=== PATIENT | female | born 1975 | race Caucasian/White ===

== ENCOUNTER 2019-09-24 08:36 | Emergency (ER) | payer MEDICAID, OTHER ==
[~2019-09-24] VITALS: Ht 170.2 cm; Wt 71.0 kg
[~2019-09-24 08:36] MED LIST: ALBU6.7H9 INH; AMOX-422 PO; ESCI20TA PO; FLUT1DIS INH; OXCA600T5 PO; PRED10TA23 PO; TRAZ-219 PO
[2019-09-24 08:45] VITALS: BP 180/108
[2019-09-24] MEDS ORDERED: HYDROcodone/acetaminophen 5mg/325mg tablet PO ONE (09:50)
[2019-09-24] MEDS ORDERED: ondansetron 4mg rapidly disintigrating tab PO ONE (09:50)
[2019-09-24] MEDS ORDERED: ALBU8HFA PO (09:52)
[2019-09-24] MEDS ORDERED: IBUP-1984 PO (09:52)
== END 2019-09-24 10:02 | disposition home or self-care (01) ==
LOC: ER 08:37
DX: S60.222A Contusion of left hand, initial encounter (principal); M25.532 Pain in left wrist; J45.909 Unspecified asthma, uncomplicated; Z79.899 Other long term (current) drug therapy; W22.8XXA Striking against or struck by other objects, initial encounter; Y93.89 Activity, other specified; Y92.89 Other specified places as the place of occurrence of the external cause; Y99.9 Unspecified external cause status
CPT/HCPCS: 29125; 73110; 99284

== ENCOUNTER 2019-11-29 16:30 | Emergency (ER) | payer MEDICAID, OTHER ==
[~2019-11-29] VITALS: Ht 170.2 cm; Wt 68.3 kg
[~2019-11-29 16:30] MED LIST changes: -TRAZ-219 PO; +TRAZ-256 PO
[2019-11-29] MEDS ORDERED: albuterol 2.5 MG/3 ML nebule NEB ONE (17:10)
[2019-11-29] MEDS ORDERED: predniSONE 20 mg tablet PO ONE (17:10)
[2019-11-29] MEDS ORDERED: albuterol 2.5 MG/3 ML nebule CONTNEB PRN (18:30)
--- NOTE | 2019-11-29 18:53 | NUR ---
Continuous neb tx started.
[2019-11-29] MEDS ORDERED: ALBU18HF2 INH (19:04)
[2019-11-29] MEDS ORDERED: PRED20TA PO (19:04)
[2019-11-29] MEDS ORDERED: ALB0.5UD IH (19:04)
[2019-11-29 20:08] VITALS: BP 154/101
== END 2019-11-29 20:12 | disposition home or self-care (01) ==
LOC: ER 16:30
DX: J45.901 Unspecified asthma with (acute) exacerbation (principal); Z79.899 Other long term (current) drug therapy
CPT/HCPCS: 94640; 94644; 99285; J7512; 94760

== ENCOUNTER 2020-05-25 21:13 | Emergency (ER) | payer OTHER, MEDICAID ==
[~2020-05-25] VITALS: Ht 170.2 cm; Wt 75.0 kg
[~2020-05-25 21:13] MED LIST changes: +ALBU18HF2 INH
[2020-05-25] MEDS ORDERED: normal saline 1000ML IV soln IV ONE (21:25)
[2020-05-25] MEDS ORDERED: methylPREDNISolone sod succ 125mg/2ml vial IV ONE (21:30)
[2020-05-25] MEDS ORDERED: albuterol 2.5 MG/3 ML nebule CONTNEB PRN (21:30)
[2020-05-25] MEDS ORDERED: LORazepam 2 mg/ml vial IV ONE (21:35)
[2020-05-25] MEDS ORDERED: magnesium 2GM in 50ml NS 50 ML IV ONE (21:35)
[2020-05-25 21:49] LABS: BASOPHILS % (AUTO) 0.6 % (0-1); EOSINOPHILS # (AUTO) 0.6 X10'3 (0-0.9); EOSINOPHILS % (AUTO) 8.4 % (0-6); HEMATOCRIT 41.6 % (35.0-45.0); LYMPHOCYTES # (AUTO) 1.5 X10'3 (1.1-4.8); LYMPHOCYTES % (AUTO) 21.2 % (21-51); MEAN CORPUSCULAR HEMOGLOBIN 33.4 PG (27.0-31.0); MEAN CORPUSCULAR HGB CONC 33.7 g/dL (33.0-36.5); MEAN CORPUSCULAR VOLUME 99.1 FL (78-98); MEAN PLATELET VOLUME 8.3 FL (7.4-10.4); MONOCYTES # (AUTO) 0.5 X10'3 (0-0.9); MONOCYTES % (AUTO) 7.8 % (2-12); NEUTROPHILS # (AUTO) 4.4 X10'3 (1.8-7.7); PLATELET COUNT 193 X10'3 (140-440); RED CELL DISTRIBUTION WIDTH 12.5 % (11.5-14.5); WHITE BLOOD COUNT 7.1 X10'3 (4.5-11.0)
[2020-05-25 22:08] LABS: ALANINE AMINOTRANSFERASE 26 U/L (12-78); ALBUMIN 4.1 G/DL (3.4-5.0); ALBUMIN/GLOBULIN RATIO 1.1 (1.1-1.5); ALKALINE PHOSPHATASE 92 IU/L (46-116); ANION GAP 11 (8-16); ASPARTATE AMINO TRANSFERASE 27 U/L (10-37); BILIRUBIN,TOTAL 0.4 MG/DL (0.1-1.0); BLOOD UREA NITROGEN 10 MG/DL (7-18); BUN/CREATININE RATIO 9.9 (6.6-38.0); CALCIUM 8.5 MG/DL (8.5-10.1); CHLORIDE 104 MMOL/L (99-107); CREATININE 1.01 MG/DL (0.40-0.90); GLUCOSE 90 MG/DL (70-104); POTASSIUM 3.7 MMOL/L (3.5-5.1); SODIUM 139 MMOL/L (135-145); TOTAL PROTEIN 7.7 G/DL (6.4-8.2); eGFR 59 ML/MIN
[2020-05-25] MEDS ORDERED: ipratropium/albuterol 3ml nebule NEB ONE (22:45)
[2020-05-25] MEDS ORDERED: albuterol 2.5 MG/3 ML nebule NEB ONE (23:25)
[2020-05-25] MEDS ORDERED: ALBU6.7H9 INH (23:28)
[2020-05-25] MEDS ORDERED: PRED20TA PO (23:28)
[2020-05-26] MEDS ORDERED: ondansetron/PF 4mg/2ml inj IV ONE (00:05)
--- NOTE | 2020-05-26 00:19 | NUR ---
pt with continued wheezing, but reports improvement from he initial symptoms when first arrived. Receiving adtl neb. just given zofran for nausea.
[2020-05-26 00:20] VITALS: BP 140/93
== END 2020-05-26 01:25 | disposition home or self-care (01) ==
LOC: ER 21:14
DX: J45.901 Unspecified asthma with (acute) exacerbation (principal); R06.02 Shortness of breath; Z98.890 Other specified postprocedural states; Z79.2 Long term (current) use of antibiotics; Z79.899 Other long term (current) drug therapy
CPT/HCPCS: 36415; 71045; 80053; 83605; 84145; 85025; 87040; 93005; 94640; 94644; 96365; 96366; 96375; 99285; J2060; J2405; J2930; J3475; J7030; 94760

== ENCOUNTER 2020-06-22 04:03 | Emergency (ER) | payer OTHER, MEDICAID ==
[~2020-06-22] VITALS: Ht 170.2 cm; Wt 79.5 kg
[2020-06-22] MEDS ORDERED: normal saline 1000ML IV soln IVB ONE (04:15)
[2020-06-22] MEDS ORDERED: albuterol 2.5 MG/3 ML nebule CONTNEB PRN (04:15)
[2020-06-22] MEDS ORDERED: methylPREDNISolone sod succ 125mg/2ml vial IV ONE (04:15)
[2020-06-22] MEDS ORDERED: ipratropium/albuterol 3ml nebule NEB ONE (04:15)
[2020-06-22] MEDS ORDERED: ALB0.5UD IH (05:16)
[2020-06-22] MEDS ORDERED: ALBU8.5H8 INH (05:16)
[2020-06-22] MEDS ORDERED: PRED20TA PO (05:16)
[2020-06-22 05:30] VITALS: BP 161/100
== END 2020-06-22 05:31 | disposition home or self-care (01) ==
LOC: ER 04:03
DX: J45.901 Unspecified asthma with (acute) exacerbation (principal); Z79.899 Other long term (current) drug therapy; Z98.890 Other specified postprocedural states
CPT/HCPCS: 93005; 94640; 96361; 96374; 99285; J2930; J7030; 94760

== ENCOUNTER 2020-07-16 23:01 | Emergency (ER) | payer OTHER, MEDICAID ==
[~2020-07-16] VITALS: Ht 167.6 cm; Wt 84.1 kg
[~2020-07-16 23:01] MED LIST changes: +ALB0.5UD IH; +ALBU8.5H8 INH
[2020-07-16] MEDS ORDERED: ipratropium/albuterol 3ml nebule NEB ONE (23:05)
[2020-07-16] MEDS ORDERED: magnesium 2GM in 50ml NS 50 ML IV ONE (23:15)
[2020-07-16] MEDS ORDERED: albuterol 2.5 MG/3 ML nebule NEB ONE (23:15)
[2020-07-16] MEDS ORDERED: methylPREDNISolone sod succ 125mg/2ml vial IV ONE (23:15)
[2020-07-17] MEDS ORDERED: albuterol 2.5 MG/3 ML nebule NEB ONE ×2 (00:20→01:50)
[2020-07-17] MEDS ORDERED: albuterol 2.5 MG/3 ML nebule CONTNEB PRN (01:55)
[2020-07-17] MEDS ORDERED: PRED20TA PO (04:44)
[2020-07-17] MEDS ORDERED: ALBU8HFA PO (05:09)
[2020-07-17 05:15] VITALS: BP 195/90
== END 2020-07-17 05:18 | disposition home or self-care (01) ==
LOC: ER 23:02
DX: J45.901 Unspecified asthma with (acute) exacerbation (principal); Z79.899 Other long term (current) drug therapy
CPT/HCPCS: 71045; 94640; 96365; 96375; 99285; J2930; J3475; 94760; A7015

== ENCOUNTER 2020-07-23 20:11 | Emergency (ER) | payer OTHER, MEDICAID ==
[~2020-07-23] VITALS: Ht 170.2 cm; Wt 84.1 kg
[~2020-07-23 20:11] MED LIST changes: +ALBU8HFA PO; +PRED20TA PO
[2020-07-23] MEDS ORDERED: dexamethasone sod phosphate 10mg/ml inj IM STA (20:39)
[2020-07-23] MEDS ORDERED: ipratropium/albuterol 3ml nebule NEB ONE (20:40)
[2020-07-23] MEDS ORDERED: BUDE10.22 INH (20:42)
[2020-07-23] MEDS ORDERED: ondansetron 4mg rapidly disintigrating tab PO ONE (22:00)
[2020-07-23 22:04] VITALS: BP 146/91
== END 2020-07-23 22:05 | disposition home or self-care (01) ==
LOC: ER 20:11
DX: J45.901 Unspecified asthma with (acute) exacerbation (principal); Z79.899 Other long term (current) drug therapy
CPT/HCPCS: 94640; 96372; 99283; J1100; 94760

== ENCOUNTER 2020-07-31 21:02 | Emergency (ER) | payer MEDICAID, OTHER ==
[~2020-07-31] VITALS: Ht 170.2 cm; Wt 80.0 kg
[~2020-07-31 21:02] MED LIST changes: -ALB0.5UD IH; +BUDE10.22 INH; -PRED20TA PO
[2020-07-31] MEDS ORDERED: methylPREDNISolone sod succ 125mg/2ml vial IV ONE (21:15)
[2020-07-31] MEDS ORDERED: ipratropium/albuterol 3ml nebule NEB ONE (21:15)
--- NOTE | 2020-07-31 21:16 | NUR ---
Dr. luna said an EKG was not required in this instance.
[2020-07-31] MEDS ORDERED: albuterol 2.5 MG/3 ML nebule CONTNEB PRN (21:35)
[2020-07-31] MEDS ORDERED: albuterol 2.5 MG/3 ML nebule ONE (21:42)
[2020-07-31] MEDS ORDERED: magnesium 2GM in 50ml NS 50 ML IV ONE (21:45)
[2020-07-31] MEDS ORDERED: normal saline 1000ML IV soln IVB ONE (21:45)
[2020-07-31 23:43] VITALS: BP 152/86
--- NOTE | 2020-07-31 23:44 | NUR ---
pt ambulated with some sob and weakness. pulse ox dropped to 93% room air at lowest with pulse of 114. sudha jimenez notified.
[2020-07-31] MEDS ORDERED: albuterol 2.5 MG/3 ML nebule NEB ONE (23:45)
[2020-08-01] MEDS ORDERED: PRED20TA PO
== END 2020-08-01 02:22 | disposition home or self-care (01) ==
LOC: ER 21:02
DX: J45.901 Unspecified asthma with (acute) exacerbation (principal); F17.200 Nicotine dependence, unspecified, uncomplicated; Z79.899 Other long term (current) drug therapy; Z79.1 Long term (current) use of non-steroidal anti-inflammatories (NSAID); Z98.890 Other specified postprocedural states; Z90.710 Acquired absence of both cervix and uterus
CPT/HCPCS: 71045; 94640; 94644; 96365; 96375; 99285; J2930; J3475; J7030; 94760; 99284; A7015

== ENCOUNTER 2020-08-19 19:31 | Emergency (ER) | payer OTHER ==
[~2020-08-19] VITALS: Ht 170.2 cm; Wt 81.8 kg
[~2020-08-19 19:31] MED LIST changes: -ALBU8HFA PO; +PRED20TA PO
[2020-08-19] MEDS ORDERED: ipratropium/albuterol 3ml nebule NEB ONE (19:40)
--- NOTE | 2020-08-19 19:40 | NUR ---
VERBAL ORDER RECEIVED FROM DYLAN ADORNO TO ORDER A DUONEB INHALER TX FOR PT. ORDER PLACED RECEIVED
[2020-08-19] MEDS ORDERED: albuterol 2.5 MG/3 ML nebule NEB ONE (23:05)
[2020-08-19] MEDS ORDERED: PRED20TA PO (23:20)
[2020-08-19] MEDS ORDERED: predniSONE 20 mg tablet PO ONE (23:20)
[2020-08-19] MEDS ORDERED: ALBU6.7H9 INH (23:20)
[2020-08-19] MEDS ORDERED: ALB0.5UD IH (23:20)
--- NOTE | 2020-08-19 23:26 | NUR ---
Pt stated she was having trouble breathing again. Verbal order from MD for SVN.
[2020-08-20] MEDS ORDERED: albuterol 2.5 MG/3 ML nebule NEB ONE (00:05)
[2020-08-20 00:29] VITALS: BP 159/103
== END 2020-08-20 00:39 | disposition home or self-care (01) ==
LOC: ER 19:32
DX: J45.901 Unspecified asthma with (acute) exacerbation (principal); R06.02 Shortness of breath; R05 Cough; F17.200 Nicotine dependence, unspecified, uncomplicated; Z90.710 Acquired absence of both cervix and uterus; Z72.89 Other problems related to lifestyle; Z79.2 Long term (current) use of antibiotics; Z79.899 Other long term (current) drug therapy
CPT/HCPCS: 94640; 99285; J7512; 94760

== ENCOUNTER 2020-09-20 04:25 | Emergency (ER) | payer OTHER ==
[~2020-09-20] VITALS: Ht 170.2 cm; Wt 81.8 kg
[~2020-09-20 04:25] MED LIST changes: -PRED20TA PO
[2020-09-20] MEDS ORDERED: predniSONE 20 mg tablet PO ONE (04:35)
[2020-09-20] MEDS ORDERED: ipratropium/albuterol 3ml nebule NEB ONE (04:35)
[2020-09-20] MEDS ORDERED: terbutaline 1 mg/ml inj SQ STA (04:36)
--- NOTE | 2020-09-20 05:01 | NUR ---
Respiratory just finished breathing treatment with pt. Pt able to move air in and out more now.
[2020-09-20] MEDS ORDERED: albuterol 2.5 MG/3 ML nebule NEB ONE (05:25)
[2020-09-20 05:27] VITALS: BP 183/99
[2020-09-20] MEDS ORDERED: PRED10TA23 PO (05:27)
[2020-09-20] MEDS ORDERED: ALBU6.7H9 INH (05:27)
[2020-09-20] MEDS ORDERED: FLUT1DIS INH (05:27)
== END 2020-09-20 06:28 | disposition home or self-care (01) ==
LOC: ER 04:25
DX: R06.03 Acute respiratory distress (principal); Z20.828 Contact with and (suspected) exposure to other viral communicable diseases; J45.901 Unspecified asthma with (acute) exacerbation; Z90.710 Acquired absence of both cervix and uterus; Z72.89 Other problems related to lifestyle; Z87.891 Personal history of nicotine dependence; Z79.899 Other long term (current) drug therapy
CPT/HCPCS: 36415; 71045; 87635; 94640; 96372; 99291; J3105; J7512; 94760

== ENCOUNTER 2020-10-04 23:06 | Emergency (ER) | payer OTHER ==
[~2020-10-04] VITALS: Ht 170.2 cm; Wt 72.7 kg
[2020-10-04] MEDS: ipratropium/albuterol 3ml nebule NEB ONE (23:20)
[2020-10-05] MEDS ORDERED: ALBU8.5H8 INH (00:59)
[2020-10-05] MEDS: methylPREDNISolone sod succ 125mg/2ml vial IV ONE (01:07)
[2020-10-05] MEDS: albuterol 2.5 MG/3 ML nebule NEB ONE (01:08)
[2020-10-05 01:41] VITALS: BP 150/90
== END 2020-10-05 01:44 | disposition home or self-care (01) ==
LOC: ER 23:07
DX: J45.901 Unspecified asthma with (acute) exacerbation (principal); Z90.710 Acquired absence of both cervix and uterus; Z72.89 Other problems related to lifestyle; Z79.899 Other long term (current) drug therapy
CPT/HCPCS: 94640; 96374; 99284; J2930; 94760

== ENCOUNTER 2022-07-12 13:11 | Emergency (ER) | payer MEDICAID, OTHER ==
[~2022-07-12] VITALS: Ht 170.2 cm; Wt 59.1 kg
[~2022-07-12 13:11] MED LIST changes: +ALBU6.7H14 INH; -ALBU6.7H9 INH; +ALBU8.5H17 INH; -ALBU8.5H8 INH
[2022-07-12 13:40] LABS: BASOPHILS % (AUTO) 0.3 % (0-1); EOSINOPHILS % (AUTO) 0.7 % (0-6); HEMATOCRIT 43.9 % (35.0-45.0); HEMOGLOBIN 14.9 g/dl (12.0-16.0); LYMPHOCYTES # (AUTO) 0.8 X10'3 (1.1-4.8); LYMPHOCYTES % (AUTO) 13.4 % (21-51); MEAN CORPUSCULAR HEMOGLOBIN 33.9 PG (27.0-31.0); MEAN CORPUSCULAR VOLUME 99.8 FL (78-98); MONOCYTES # (AUTO) 0.4 X10'3 (0-0.9); MONOCYTES % (AUTO) 6.6 % (2-12); NEUTROPHILS # (AUTO) 4.6 X10'3 (1.8-7.7); PLATELET COUNT 95 X10'3 (140-440); RED CELL DISTRIBUTION WIDTH 12.9 % (11.5-14.5); WHITE BLOOD COUNT 5.8 X10'3 (4.5-11.0)
[2022-07-12 13:54] LABS: ALANINE AMINOTRANSFERASE 46 U/L (12-78); ALBUMIN/GLOBULIN RATIO 1.2 (1.1-1.5); ALKALINE PHOSPHATASE 131 IU/L (46-116); ANION GAP 10 (8-16); ASPARTATE AMINO TRANSFERASE 62 U/L (10-37); BILIRUBIN,TOTAL 0.6 MG/DL (0.1-1.0); BLOOD UREA NITROGEN 12 MG/DL (7-18); BUN/CREATININE RATIO 12.1 (6.6-38.0); CALCIUM 9.1 MG/DL (8.5-10.1); CHLORIDE 102 MMOL/L (99-107); CREATININE 0.99 MG/DL (0.40-0.90); GLUCOSE 98 MG/DL (70-104); LIPASE 81 U/L (73-393); SODIUM 139 MMOL/L (135-145); TOTAL PROTEIN 7.4 G/DL (6.4-8.2); eGFR 60 ML/MIN
[2022-07-12] MEDS ORDERED: POTASSIUM BICARB 20meq eff tab 20 MEQ TABLET.EFF PO ONE (14:30)
[2022-07-12] MEDS ORDERED: normal saline 1000ml 1,000 ML IV ONE (15:05)
[2022-07-12] MEDS ORDERED: ondansetron/PF 4mg/2ml inj IV ONE (15:05)
[2022-07-12] MEDS ORDERED: famotidine/PF 10 mg/ml inj IV ONE (15:05)
[2022-07-12 15:51] LABS: HIV ANTIBODY 1&2 RAPID NON-REACTIVE (Neg)
[2022-07-12 18:18] VITALS: BP 150/97
[2022-07-12 18:26] LABS: URINE HCG NEGATIVE (NEG)
[2022-07-12 18:27] LABS: CLARITY,URINE CLOUDY (Clear); GLUCOSE, URINE NEGATIVE (Neg); KETONES,URINE TRACE mg/dl (Neg); LEUKOCYTE ESTERASE ,URINE NEGATIVE (Neg); NITRITES, URINE POSITIVE (Neg); OCCULT BLOOD,URINE TRACE-INTACT (Neg); PH,URINE 5.5 (4.8-8.0); PROTEIN,URINE 30 mg/dl (Neg); UROBILINOGEN,URINE 0.2 E.U/dL (0.2-1.0)
[2022-07-12] MEDS ORDERED: ONDA4TAB12 PO (18:32)
[2022-07-12 18:34] LABS: COLOR,URINE DARK YELLOW (Yellow); UA COLLECTION TYPE CLN CATCH MIDSTREAM
[2022-07-12 18:43] LABS: BACTERIA,URINE 4+ /HPF (Neg); HYALINE CASTS 0-3 /LPF (NEGATIVE); MUCUS STRANDS FEW /LPF (Neg); SQUAMOUS EPITHELIAL CELL,UR FEW /LPF (FEW); TRANSITIONAL EPI CELLS,URINE FEW /HPF
[2022-07-13] MEDS ORDERED: NITR100C6 PO (22:25)
[2022-07-14 16:10] LABS: HBSAG SCREEN Negative (Negative); HEP A AB, IGM Negative (Negative); HEPATITIS C ANTIBODY <0.1 s/co ratio (0.0-0.9)
== END 2022-07-12 19:16 | disposition home or self-care (01) ==
LOC: ER 13:11
DX: S09.90XA Unspecified injury of head, initial encounter (principal); Z20.822 Contact with and (suspected) exposure to COVID-19; R55 Syncope and collapse; D69.6 Thrombocytopenia, unspecified; R74.01 Elevation of levels of liver transaminase levels; J45.909 Unspecified asthma, uncomplicated; F17.200 Nicotine dependence, unspecified, uncomplicated; Z90.710 Acquired absence of both cervix and uterus; X58.XXXA Exposure to other specified factors, initial encounter; Y93.89 Activity, other specified; Y92.89 Other specified places as the place of occurrence of the external cause; Y99.8 Other external cause status
CPT/HCPCS: 36415; 71045; 80053; 81001; 81025; 82607; 83690; 84443; 85025; 85610; 86703; 86709; 86803; 87077; 87088; 87186; 87340; 87502; 87503; 87635; 93005; 96361; 96374; 96375; 99285; C9803; J2405; J3490; J7030

== ENCOUNTER 2023-03-29 16:15 | Emergency (ER) | payer SELFPAY ==
[~2023-03-29] VITALS: Ht 170.2 cm; Wt 75.0 kg
[~2023-03-29 16:15] MED LIST changes: +NITR100C6 PO; +ONDA4TAB12 PO
[2023-03-29 16:21] VITALS: BP 92/68
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
[2023-03-29] MEDS ORDERED: iohexol 350MG/ML 100ml bottle IV ONE (16:40)
== END 2023-03-29 18:13 | disposition home or self-care (01) ==
LOC: ER 16:16
DX: T71.9XXA Asphyxiation due to unspecified cause, initial encounter (principal); M54.2 Cervicalgia; R07.0 Pain in throat; J45.909 Unspecified asthma, uncomplicated; Z90.710 Acquired absence of both cervix and uterus; Z72.89 Other problems related to lifestyle; Z79.899 Other long term (current) drug therapy; Y04.8XXA Assault by other bodily force, initial encounter; Y93.89 Activity, other specified; Y92.89 Other specified places as the place of occurrence of the external cause; Y99.8 Other external cause status
CPT/HCPCS: 70498; 93880; 99285; J3490; Q9967

== ENCOUNTER 2024-06-17 21:16 | Inpatient (IN) | payer MEDICAID ==
[~2024-06-17] VITALS: Ht 170.2 cm; Wt 74.5 kg
[~2024-06-17 21:16] MED LIST changes: +ONDA-243 PO; -ONDA4TAB12 PO
[2024-06-17] MEDS ORDERED: methylPREDNISolone sod succ/PF 40mg inj. IV SCH (21:27)
[2024-06-17] MEDS: methylPREDNISolone sod succ 125mg/2ml vial IV SCH (21:30)
[2024-06-17 21:53] LABS: BASOPHILS % (AUTO) 0.2 % (0-1); EOSINOPHILS # (AUTO) 0.2 X10'3 (0-0.9); HEMATOCRIT 39.8 % (35.0-45.0); HEMOGLOBIN 13.1 g/dl (12.0-16.0); LYMPHOCYTES % (AUTO) 9.1 % (21-51); MEAN CORPUSCULAR HEMOGLOBIN 31.5 PG (27.0-31.0); MEAN CORPUSCULAR HGB CONC 33.1 g/dL (33.0-36.5); MEAN CORPUSCULAR VOLUME 95.3 FL (78-98); MEAN PLATELET VOLUME 9.2 FL (7.4-10.4); MONOCYTES # (AUTO) 0.7 X10'3 (0-0.9); NEUTROPHILS # (AUTO) 8.6 X10'3 (1.8-7.7); NEUTROPHILS % (AUTO) 81.7 % (42-75); PLATELET COUNT 169 X10'3 (140-440); RED BLOOD COUNT 4.17 X10'6 (4.20-5.60); RED CELL DISTRIBUTION WIDTH 13.1 % (11.5-14.5); WHITE BLOOD COUNT 10.5 X10'3 (4.5-11.0)
[2024-06-17 22:12] LABS: ALANINE AMINOTRANSFERASE 48 U/L (12-78); ALBUMIN 4.4 G/DL (3.4-5.0); ALBUMIN/GLOBULIN RATIO 1.4 (1.1-1.5); ALKALINE PHOSPHATASE 143 IU/L (46-116); ANION GAP 10 (8-16); ASPARTATE AMINO TRANSFERASE 61 U/L (10-37); BILIRUBIN,TOTAL 0.3 MG/DL (0.1-1.0); BLOOD UREA NITROGEN 12 MG/DL (7-18); BUN/CREATININE RATIO 17.9 (10.0-20.0); CALCIUM 8.4 MG/DL (8.5-10.1); CHLORIDE 107 MMOL/L (99-107); CREATININE 0.67 MG/DL (0.40-0.90); GLUCOSE 101 MG/DL (70-104); POTASSIUM 3.2 MMOL/L (3.5-5.1); SODIUM 143 MMOL/L (135-145); TOTAL CARBON DIOXIDE 26.5 MMOL/L (24-32); TOTAL PROTEIN 7.5 G/DL (6.4-8.2); eCRCL 99 ML/MIN; eGFR > 90 ML/MIN
[2024-06-17 22:20] LABS: PRO BRAIN NATRIURETIC PEPTIDE 131 PG/ML (0-125)
[2024-06-17] MEDS: ipratropium/albuterol 3ml nebule NEB ONE (22:26)
[2024-06-17 22:28] VITALS: PULSE 123; RESP 23; O2SAT 100
[2024-06-17 22:34] VITALS: PULSE 119; RESP 22; O2SAT 100
[2024-06-17] MEDS: albuterol 2.5 MG/3 ML nebule CONTNEB PRN (23:16)
[2024-06-17 23:17] VITALS: PULSE 106; RESP 22; O2SAT 97
[2024-06-17] MEDS ORDERED: magnesium sulf-water 4G/100mL 100 ML IV PRN (23:55)
[2024-06-17] MEDS ORDERED: acetaminophen 325mg tablet PO PRN (23:55)
[2024-06-17] MEDS ORDERED: potassium Cl 40MEQ/1/2NS 520ml 520 ML IV PRN (23:55)
[2024-06-17] MEDS ORDERED: ondansetron/PF 4mg/2ml inj IV PRN (23:55)
[2024-06-17] MEDS ORDERED: potassium Cl 20 mEq SR tablet PO PRN (23:55)
[2024-06-17] MEDS ORDERED: magnesium sulf-water 2g/50mL 50 ML IV PRN (23:55)
[2024-06-17] MEDS ORDERED: mag hydrox/Alum hydrox/simeth 30ml oral suspension PO PRN (23:55)
[2024-06-17] MEDS ORDERED: magnesium Cl slow-release 64mg tablet PO PRN (23:55)
[2024-06-17] MEDS ORDERED: magnesium hydroxide 30ml (MOM) UD suspension PO PRN (23:55)
[2024-06-17] MEDS ORDERED: morphine 2 MG/ML inj. syringe IV PRN (23:55)
[2024-06-18] VITALS (8 sets, daily range): BP systolic 141; BP diastolic 72; PULSE 92–109; RESP 16–22; TEMP 97.9; O2SAT 96–100
[2024-06-18] MEDS ORDERED: albuterol 2.5 MG/3 ML nebule NEB PRN (00:35)
[2024-06-18 00:49] LABS: MAGNESIUM 1.4 MG/DL (1.5-2.4); PHOSPHORUS 2.8 MG/DL (2.3-4.5)
[2024-06-18 00:52] LABS: HEMOGLOBIN A1C 5.3 % (4.5-6.2)
[2024-06-18] MEDS ORDERED: ipratropium/albuterol 3ml nebule NEB SCH (01:00)
[2024-06-18] MEDS: ipratropium/albuterol 3ml nebule NEB SCH (02:12)
[2024-06-18 02:49] LABS: BASOPHILS % (AUTO) 0.1 % (0-1); EOSINOPHILS % (AUTO) 0 % (0-6); HEMATOCRIT 40.3 % (35.0-45.0); HEMOGLOBIN 13.3 g/dl (12.0-16.0); LYMPHOCYTES # (AUTO) 0.2 X10'3 (1.1-4.8); LYMPHOCYTES % (AUTO) 1.9 % (21-51); MEAN CORPUSCULAR HEMOGLOBIN 31.1 PG (27.0-31.0); MEAN CORPUSCULAR HGB CONC 32.9 g/dL (33.0-36.5); MEAN CORPUSCULAR VOLUME 94.5 FL (78-98); MEAN PLATELET VOLUME 8.9 FL (7.4-10.4); MONOCYTES # (AUTO) 0.2 X10'3 (0-0.9); MONOCYTES % (AUTO) 1.7 % (2-12); NEUTROPHILS # (AUTO) 11.1 X10'3 (1.8-7.7); NEUTROPHILS % (AUTO) 96.3 % (42-75); PLATELET COUNT 167 X10'3 (140-440); RED BLOOD COUNT 4.26 X10'6 (4.20-5.60); WHITE BLOOD COUNT 11.5 X10'3 (4.5-11.0)
[2024-06-18 03:07] LABS: ALANINE AMINOTRANSFERASE 48 U/L (12-78); ALBUMIN 4.1 G/DL (3.4-5.0); ALBUMIN/GLOBULIN RATIO 1.2 (1.1-1.5); ALKALINE PHOSPHATASE 120 IU/L (46-116); ANION GAP 12 (8-16); ASPARTATE AMINO TRANSFERASE 48 U/L (10-37); BILIRUBIN,TOTAL 0.3 MG/DL (0.1-1.0); BLOOD UREA NITROGEN 9 MG/DL (7-18); BUN/CREATININE RATIO 11.8 (10.0-20.0); CHLORIDE 106 MMOL/L (99-107); CHOL/HDL RATIO 2.3 (0.00-4.99); CHOLESTEROL 163 MG/DL (0-200); CREATININE 0.76 MG/DL (0.40-0.90); GLUCOSE 144 MG/DL (70-104); HDL CHOLESTEROL 72 MG/DL (35-60); LDL CHOLESTEROL 84 MG/DL (50-100); MAGNESIUM 1.9 MG/DL (1.5-2.4); POTASSIUM 3.4 MMOL/L (3.5-5.1); SODIUM 141 MMOL/L (135-145); TOTAL CARBON DIOXIDE 23.5 MMOL/L (24-32); TOTAL PROTEIN 7.5 G/DL (6.4-8.2); TRIGLYCERIDES 23 MG/DL (20-135); eCRCL 87 ML/MIN; eGFR 81 ML/MIN
[2024-06-18] MEDS: azithromycin/NS 500mg/250ml 250 ML IV SCH (04:19)
[2024-06-18] MEDS: LORazepam 1 MG tablet PO ONE (04:19)
[2024-06-18] MEDS: traMADol 50MG tablet PO ONE ×2 (05:44)
[2024-06-18] MEDS: K and/or MAG REPLACEMENT MC SCH (08:00)
[2024-06-18] MEDS: docusate sod 100mg capsule PO SCH (08:00)
[2024-06-18] MEDS ORDERED: methylPREDNISolone sod succ 125mg/2ml vial IV SCH (08:00)
[2024-06-18] MEDS: potassium Cl 20 mEq SR tablet PO PRN (08:42)
[2024-06-18] MEDS: methylPREDNISolone sod succ 125mg/2ml vial IV ONE (08:43)
[2024-06-18] MEDS: heparin, porcine 5000 units/ml vial SQ SCH (08:43)
[2024-06-18] MEDS ORDERED: PRED10TA23 PO ×2 (12:03→12:24)
[2024-06-18] MEDS ORDERED: ALBU8HFA INH (12:24)
[2024-06-19] MEDS ORDERED: methylPREDNISolone sod succ 125mg/2ml vial IV SCH (08:00)
== END 2024-06-18 12:50 | disposition home or self-care (01) | DRG 133 ==
LOC: ER 21:16 → ED HOLD 23:58 → EDBEDREQ 06-18 05:27 → ORTHO 4S 06-18 07:28
PROVIDERS: ADMIT Internal Medicine Pulmonary Disease; ATTEND Internal Medicine
DX: J96.01 Acute respiratory failure with hypoxia (principal); J45.51 Severe persistent asthma with (acute) exacerbation; E83.42 Hypomagnesemia; I10 Essential (primary) hypertension; E87.6 Hypokalemia; Z20.822 Contact with and (suspected) exposure to COVID-19; Z79.899 Other long term (current) drug therapy; Z90.710 Acquired absence of both cervix and uterus
CPT/HCPCS: 36415; 71045; 80053; 80061; 83036; 83735; 83880; 84100; 84484; 85025; 87081; 87502; 87503; 87811; 93005; 94640; 94760; 99291; A7015; G0378; J0456; J1644; J2919